=== PATIENT | female | born 1995 | race Hispanic/Latino ===

== ENCOUNTER 2017-04-02 23:53 | Emergency (ER) | payer BC, OTHER ==
[2017-04-03 00:23] VITALS: BP 112/76; PULSE 89; RESP 16; TEMP 98.8; O2SAT 97
[2017-04-03] MEDS ORDERED: Sodium Chloride 0.9% 1,000 ML IV STA (00:29)
--- NOTE | 2017-04-03 00:30 | ED PDOC ---
HPI:Nausea, Vomiting, Diarrhea Time Seen by Provider: 04/03/17 00:09 Chief Complaint (Nursing): Abdominal Pain Chief Complaint (Provider): vomiting, diarrhea History Per: Patient History/Exam Limitations: no limitations Onset/Duration Of Symptoms: Days (1) Current Symptoms Are (Timing): Still Present Quality Of Discomfort: Cramping Associated Symptoms: Nausea, Vomiting, Diarrhea Additional History Per: Patient Additional Complaint(s): 22 y/o female presents with multiple episodes of nonbilious vomiting, nonbloody/ nonmucoid diarrhea x 1 day. Patient states she just returned from [place] this am after being there for 5 days, symptoms started upon return. Patient sister sick with same, states they traveled together. Denies fever, chest pain, cough , congestion, shortness of breath, palpitations, dysuria, hematuria. Patient unable to tolerate liquids. Past Medical History Reviewed: Historical Data, Nursing Documentation, Vital Signs Vital Signs: Last Vital Signs Temp 98.8 F 04/03/17 00:05 Pulse 89 04/03/17 00:05 Resp 16 04/03/17 00:05 BP 112/76 04/03/17 00:05 Pulse Ox 97 04/03/17 00:05 - Medical History PMH: Pneumonia - Surgical History Surgical History: No Surg Hx - Family History Family History: States: No Known Family Hx - Immunization History Hx Tetanus Toxoid Vaccination: Yes Hx Influenza Vaccination: Yes Hx Pneumococcal Vaccination: No - Home Medications Home Medications: Ambulatory Orders Medication Instructions Recorded Cyclobenzaprine [Cyclobenzaprine 10 mg PO TID #15 tab 08/11/16 HCl] Naproxen [Naprosyn] 500 mg PO BID PRN #20 tablet 08/11/16 Dicyclomine [Bentyl] 20 mg PO TID PRN #21 tab 04/03/17 Famotidine [Pepcid] 20 mg PO BID #14 tab 04/03/17 Ondansetron ODT [Zofran ODT] 4 mg PO Q8 PRN #10 odt 04/03/17 - Allergies Allergies/Adverse Reactions: Allergies Allergy/AdvReac Type Severity Reaction Status Date / Time No Known Allergies Allergy Verified 08/11/16 08:52 Review of Systems ROS Statement: Except As Marked, All Systems Reviewed And Found Negative Gastrointestinal: Positive for: Nausea, Vomiting, Abdominal Pain, Diarrhea Physical Exam - Reviewed Nursing Documentation Reviewed: Yes Vital Signs Reviewed: Yes - Physical Exam Appears: Positive for: Well, Non-toxic, Uncomfortable Head Exam: Positive for: ATRAUMATIC, NORMAL INSPECTION, NORMOCEPHALIC Skin: Positive for: Normal Color Eye Exam: Positive for: Normal appearance ENT: Positive for: Normal ENT Inspection Cardiovascular/Chest: Positive for: Regular Rate, Rhythm Respiratory: Positive for: Normal Breath Sounds Gastrointestinal/Abdominal: Positive for: Bowel Sounds, Soft, Tenderness ( epigastric) Back: Positive for: Normal Inspection Extremity: Positive for: Normal ROM Neurologic/Psych: Positive for: Alert, Oriented - Laboratory Results Result Diagrams: 04/03/17 00:40 - ECG O2 Sat by Pulse Oximetry: 97 - Progress ED Course And Treament: labs, urine, IV fluids, IV zofran, IV pepcid, PO bentyl On re-eval, patient states she is feeling better. Tolerating PO. Patient educated on findings, discharged with rx pepcid, zofran, bentyl. Rx cipro, flagyl provided with instructions to wait 48 hours to see if symptoms improve before starting them. Fluids. Rest. Follow up PMD 2-3 days. Return to ED for worsening/concerning symptoms. Disposition - Clinical Impression Clinical Impression: Gastroenteritis - Patient ED Disposition Is Patient to be Admitted: No Counseled Patient/Family Regarding: Studies Performed, Diagnosis, Need For Followup - Disposition Disposition: Routine/Home Disposition Time: 03:30 Condition: IMPROVED Prescriptions: Dicyclomine [Bentyl] 20 mg PO TID PRN #21 tab PRN Reason: Pain, Mild (1-3) Famotidine [Pepcid] 20 mg PO BID #14 tab Ondansetron ODT [Zofran ODT] 4 mg PO Q8 PRN #10 odt PRN Reason: Nausea/Vomiting Forms: [employer] (Finnish)
[2017-04-03 00:47] LABS: BASO % 0.1 % (0.0-2.0); EOS % 0.1 % (0.0-4.0); HEMATOCRIT 41.9 % (34.0-47.0); LYMPH # 0.2 K/uL (1.0-4.3); LYMPH % 2.5 % (20.0-40.0); MEAN CELL VOLUME 92.9 fl (81.0-99.0); MEAN CORPUSCULAR HEMOGLOBIN 31.6 pg (27.0-31.0); MEAN PLATELET VOLUME 7.6 fl (7.2-11.7); MONO # 0.5 K/uL (0.0-0.8); MONO % 5.5 % (0.0-10.0); NEUT # 7.8 K/uL (1.8-7.0); NEUT % 91.8 % (50.0-75.0); PLATELET COUNT 223 K/uL (130-400); RED CELL DISTRIBUTION WIDTH 12.5 % (11.5-14.5); WHITE BLOOD COUNT 8.5 K/uL (4.8-10.8)
[2017-04-03 00:55] LABS: ALB/GLOB RATIO 1.8 (1.0-2.1); ALKALINE PHOSPHATASE 55 U/L (38-126); ALT/SGPT 31 U/L (9-52); AST/SGOT 20 U/L (14-36); BILIRUBIN,TOTAL 1.6 mg/dl (0.2-1.3); BLOOD UREA NITROGEN 14 mg/dl (7-17); CALCIUM 9.2 mg/dL (8.4-10.2); CARBON DIOXIDE 22 mmol/L (22-30); CHLORIDE 102 mmol/L (98-107); GFR AFRICAN-AMERICAN > 60; GLUCOSE,RANDOM 130 mg/dL (65-105); LIPASE 68 U/L (23-300); POTASSIUM 3.8 MMOL/L (3.6-5.0); SODIUM 136 mmol/l (132-148); TOTAL PROTEIN 6.6 G/DL (6.3-8.2)
[2017-04-03 07:47] LABS: TOTAL CELLS COUNTED 100
[2017-04-03 07:48] LABS: EOSINOPHIL 1 % (0-7); NEUTROPHIL 82 % (42-75)
== END 2017-04-03 03:00 | disposition home or self-care (01) ==
LOC: H.ER 23:53
DX: K52.9 Noninfective gastroenteritis and colitis, unspecified (principal)
CPT/HCPCS: 80053; 81025; 83690; 85025; 96374; 99283; J2405; J7040